=== PATIENT | male | born 1960 | race Caucasian/White ===

== ENCOUNTER 2020-07-09 15:45 | Emergency (ER) | payer MEDICARE, OTHER ==
[~2020-07-09 15:45] MED LIST: ZOFRAN ODT 4 MG4 MG PO
[2020-07-09 16:39] LABS: HEMOGLOBIN 14.6 gm/dl (14.0-17.5); RED BLOOD COUNT 4.71 M/UL (4.20-5.50); WHITE BLOOD COUNT 7.6 K/UL (4.5-11.0)
[2020-07-09 17:11] LABS: BUN/CREATININE RATIO 16 (0-10)
== END 2020-07-09 20:00 | disposition home or self-care (01) ==
LOC: ER1 15:45
PROVIDERS: Nurse Practitioner
DX: R07.1 Chest pain on breathing (principal); R00.2 Palpitations; R05 Cough; R11.2 Nausea with vomiting, unspecified; J44.9 Chronic obstructive pulmonary disease, unspecified; F32.9 Major depressive disorder, single episode, unspecified; F41.9 Anxiety disorder, unspecified; F17.210 Nicotine dependence, cigarettes, uncomplicated; Z79.899 Other long term (current) drug therapy; Z88.2 Allergy status to sulfonamides; Z20.822 Contact with and (suspected) exposure to COVID-19
CPT/HCPCS: 71045; 80053; 80307; 81001; 82550; 82553; 83605; 83690; 83735; 83874; 84484; 85025; 93005; 96365; 96372; 96375; 99285; G0480; J0500; J1100; J1885; J2270; J2405; U0002

== ENCOUNTER → 2020-09-08 | Outpatient (CLI) | payer MEDICARE, OTHER | LOC: MRI 13:00 | DX: M51.36 Other intervertebral disc degeneration, lumbar region (principal); M51.37 Other intervertebral disc degeneration, lumbosacral region | CPT/HCPCS: 72158; A9577 ==

== ENCOUNTER 2020-12-08 09:25 | Emergency (ER) | payer MEDICARE, OTHER | END 2020-12-08 12:10 | disposition left against medical advice (07) | LOC: ER1 09:25 | DX: Z53.21 Procedure and treatment not carried out due to patient leaving prior to being seen by health care provider (principal) | CPT/HCPCS: 71046 ==

== ENCOUNTER 2021-06-30 20:26 | Emergency (ER) | payer MEDICARE, OTHER | END 2021-06-30 22:35 | disposition home or self-care (01) | LOC: ER1 20:26 | DX: S61.211A Laceration without foreign body of left index finger without damage to nail, initial encounter (principal); Z23 Encounter for immunization; W23.0XXA Caught, crushed, jammed, or pinched between moving objects, initial encounter | CPT/HCPCS: 73140; 90471; 90715; 99283 ==